=== PATIENT | female | born 1960 | race Two or more races ===

== ENCOUNTER 2017-08-20 18:00 | Emergency (ER) | payer MEDICAID, OTHER ==
[~2017-08-20] VITALS: Ht 157.5 cm; Wt 77.1 kg
[2017-08-20 18:35] VITALS: BP 156/75
== END 2017-08-20 22:14 | disposition home or self-care (01) ==
LOC: ER 18:21
DX: H11.31 Conjunctival hemorrhage, right eye (principal); R51 Headache

== ENCOUNTER 2021-04-12 11:50 | Emergency (ER) | payer MEDICAID ==
[~2021-04-12] VITALS: Ht 144.8 cm; Wt 64.9 kg
[2021-04-12 12:54] VITALS: BP 144/79
[2021-04-12] MEDS ORDERED: KETOROLAC TROMETH 60MG/2ML VIAL IM ONE (13:30)
== END 2021-04-12 13:55 | disposition home or self-care (01) ==
LOC: ER 11:50
DX: R07.81 Pleurodynia (principal); W01.0XXA Fall on same level from slipping, tripping and stumbling without subsequent striking against object, initial encounter; Y93.51 Activity, roller skating (inline) and skateboarding; Y92.89 Other specified places as the place of occurrence of the external cause; Y99.8 Other external cause status
CPT/HCPCS: 71045; 96372; 99283; J1885

== ENCOUNTER 2021-12-22 13:47 | Inpatient (IN) | payer MEDICAID ==
[~2021-12-22] VITALS: Ht 152.4 cm; Wt 78.0 kg
[2021-12-22 15:34] LABS: Eosinophils # (auto) 0 10 ^3/uL (0-0.8); Nucleated Red Blood Cells % 0.2 %; White Blood Cell 6.1 10^3/uL (4.4-10.8)
[2021-12-22 15:36] LABS: Basophils # (auto) 0.1 10 ^3/uL (0-0.2); Basophils % (auto) 1.1 % (0.0-2.0); Eosinophils % (auto) 0.5 % (0.0-7.0); Hematocrit 24.7 % (36.0-46.0); Lymphocytes # (auto) 0.8 10 ^3/uL (0.4-5.4); Mean Corpuscular Hemoglobin 23.2 pg (28.0-32.0); Mean Corpuscular Hgb Conc. 32.5 g/dL (32.0-36.0); Mean Corpuscular Volume 71.4 fL (80.0-100.0); Monocytes # (auto) 0.6 10 ^3/uL (0-1.3); Monocytes % (auto) 10.6 % (0.0-12.0); Neutrophils # (auto) 4.6 10 ^3/uL (1.6-8.6); Neutrophils % (auto) 74.8 % (37.0-80.0); Red Blood Cells 3.45 10^6/uL (4.0-5.20)
[2021-12-22 15:38] LABS: Red Cell Distribution Width 22.8 % (11.8-14.3)
[2021-12-22 15:48] LABS: Albumin 2.1 g/dL (3.4-5.0); Calcium 7.9 mg/dL (8.5-10.1); Magnesium 2.1 mg/dL (1.6-2.6); Potassium 3.2 mmol/L (3.5-5.1)
[2021-12-22 15:53] LABS: BUN/Creatinine Ratio 9.5; Bilirubin, Total 3.5 mg/dL (0.2-1.0); Total Protein 7.1 g/dL (6.4-8.2)
[2021-12-22] MEDS ORDERED: FUROSEMIDE 20 MG TAB PO ONE (19:30)
[2021-12-22] MEDS ORDERED: IOHEXOL 350 MG/ML 100ML IJ ONE (20:11)
[2021-12-22] MEDS ORDERED: POTASSIUM EFFERVESENT TAB 25 MEQ PO ONE (22:15)
[2021-12-23] MEDS ORDERED: MORPHINE SULFATE 4 MG/ML SYR/VIAL IV PRN (01:15)
[2021-12-23] MEDS ORDERED: NITROGLYCERIN 0.4 MG SL TAB SL PRN (01:15)
[2021-12-23] MEDS ORDERED: MORPHINE SULFATE INJECTION 2 MG/ML SYRG IV PRN (01:15)
[2021-12-23] MEDS ORDERED: ONDANSETRON HCL 4 MG/2 ML VIAL IV PRN (01:15)
[2021-12-23 02:04] LABS: Eosinophils # (auto) 0.1 10 ^3/uL (0-0.8); Hematocrit 24.7 % (36.0-46.0); Nucleated Red Blood Cells % 0.2 %
[2021-12-23 02:07] LABS: Basophils # (auto) 0 10 ^3/uL (0-0.2); Basophils % (auto) 0.6 % (0.0-2.0); Eosinophils % (auto) 1.1 % (0.0-7.0); Lymphocytes # (auto) 1.8 10 ^3/uL (0.4-5.4); Lymphocytes % (auto) 21.6 % (10.0-50.0); Mean Corpuscular Hemoglobin 23.2 pg (28.0-32.0); Mean Corpuscular Hgb Conc. 32.4 g/dL (32.0-36.0); Mean Corpuscular Volume 71.5 fL (80.0-100.0); Monocytes # (auto) 1.2 10 ^3/uL (0-1.3); Monocytes % (auto) 14.5 % (0.0-12.0); Neutrophils # (auto) 5.2 10 ^3/uL (1.6-8.6); Neutrophils % (auto) 62.2 % (37.0-80.0); Red Blood Cells 3.46 10^6/uL (4.0-5.20); White Blood Cell 8.4 10^3/uL (4.4-10.8)
[2021-12-23 02:09] LABS: Red Cell Distribution Width 22.7 % (11.8-14.3)
[2021-12-23 02:19] LABS: INR 1.78 (0.9-1.15)
[2021-12-23 02:33] LABS: Bilirubin, Direct 1.2 mg/dL (0-0.2)
[2021-12-23 02:34] LABS: % Iron Saturation 7.4 % (15-50); Bilirubin, Total 3.5 mg/dL (0.2-1.0)
[2021-12-23 06:07] VITALS: BP 145/68
[2021-12-23 06:22] VITALS: BP 145/68
[2021-12-23] MEDS ORDERED: PNEUMOCOCCAL VACC POLYS 25 MCG/0.5 ML VIAL IM ONE (06:45)
[2021-12-23] MEDS ORDERED: INFLUENZA QUAD 2021-2022 0.5 ML SYRG IM ONE (06:45)
[2021-12-23 09:00] VITALS: BP_SYST 136; BP_SYST 149; BP_DIAS 77; BP_DIAS 79
[2021-12-23 10:06] LABS: Basophils # (auto) 0 10 ^3/uL (0-0.2); Eosinophils # (auto) 0 10 ^3/uL (0-0.8); Mean Corpuscular Hemoglobin 22.7 pg (28.0-32.0); Mean Corpuscular Hgb Conc. 32.4 g/dL (32.0-36.0); Monocytes # (auto) 0.7 10 ^3/uL (0-1.3); Nucleated Red Blood Cells % 0.1 %
[2021-12-23 10:09] LABS: Basophils % (auto) 0.4 % (0.0-2.0); Eosinophils % (auto) 0.6 % (0.0-7.0); Hematocrit 21.3 % (36.0-46.0); Lymphocytes % (auto) 17.5 % (10.0-50.0); Mean Corpuscular Volume 70.1 fL (80.0-100.0); Monocytes % (auto) 11.1 % (0.0-12.0); Neutrophils # (auto) 4.2 10 ^3/uL (1.6-8.6); Neutrophils % (auto) 70.4 % (37.0-80.0); Red Blood Cells 3.04 10^6/uL (4.0-5.20)
[2021-12-23 10:16] LABS: Hemoglobin 6.9 g/dL (12.2-16.2); Red Cell Distribution Width 23.1 % (11.8-14.3)
[2021-12-23 10:21] LABS: Albumin 1.9 g/dL (3.4-5.0); Calcium 7.8 mg/dL (8.5-10.1); Potassium 3.4 mmol/L (3.5-5.1)
[2021-12-23 10:27] LABS: BUN/Creatinine Ratio 10.5
[2021-12-23 10:28] LABS: Bilirubin, Total 3.2 mg/dL (0.2-1.0); Total Protein 6.4 g/dL (6.4-8.2)
[2021-12-23 13:00] VITALS: BP 132/70
[2021-12-23] MEDS: FUROSEMIDE 40 MG/4 ML VIAL IV SCH (14:45)
[2021-12-23 17:00] VITALS: BP 122/59
[2021-12-23] MEDS: SPIRONOLACTONE 25 MG TAB PO SCH (17:40)
[2021-12-23 20:00] VITALS: BP 150/58
[2021-12-24] VITALS (11 sets, daily range): BP systolic 116–135; BP diastolic 53–71
[2021-12-24] MEDS: SPIRONOLACTONE 25 MG TAB PO SCH ×2 (06:27→17:50)
[2021-12-24 07:46] LABS: Basophils # (auto) 0 10 ^3/uL (0-0.2); Eosinophils # (auto) 0.1 10 ^3/uL (0-0.8); Lymphocytes # (auto) 1.4 10 ^3/uL (0.4-5.4); Monocytes # (auto) 0.7 10 ^3/uL (0-1.3)
[2021-12-24 07:52] LABS: Basophils % (auto) 0.4 % (0.0-2.0); Eosinophils % (auto) 1.9 % (0.0-7.0); Hematocrit 20.3 % (36.0-46.0); Lymphocytes % (auto) 23.6 % (10.0-50.0); Mean Corpuscular Hgb Conc. 31.4 g/dL (32.0-36.0); Neutrophils # (auto) 3.5 10 ^3/uL (1.6-8.6); Neutrophils % (auto) 61.1 % (37.0-80.0); Nucleated Red Blood Cells % 0.4 %; Red Blood Cells 2.87 10^6/uL (4.0-5.20); White Blood Cell 5.7 10^3/uL (4.4-10.8)
[2021-12-24 08:03] LABS: Potassium 3.3 mmol/L (3.5-5.1)
[2021-12-24 08:06] LABS: Mean Corpuscular Volume 70.6 fL (80.0-100.0)
[2021-12-24 08:07] LABS: Mean Corpuscular Hemoglobin 22.2 pg (28.0-32.0); Red Cell Distribution Width 23.4 % (11.8-14.3)
[2021-12-24 08:08] LABS: Hemoglobin 6.4 g/dL (12.2-16.2)
[2021-12-24 08:12] LABS: Albumin 1.6 g/dL (3.4-5.0); BUN/Creatinine Ratio 12.5; Bilirubin, Total 2.8 mg/dL (0.2-1.0); Calcium 7.5 mg/dL (8.5-10.1); Total Protein 5.7 g/dL (6.4-8.2)
[2021-12-24] MEDS ORDERED: FUROSEMIDE 40 MG/4 ML VIAL IV ONE (08:30)
[2021-12-24] MEDS: FUROSEMIDE 40 MG/4 ML VIAL IV SCH (09:21)
[2021-12-24] MEDS ORDERED: POTASSIUM CHL 20 Meq TABLET PO ONE (10:15)
[2021-12-24] MEDS: cefTRIAXone 1GM/50ML D5W 50 ML IV SCH (19:10)
[2021-12-25 05:00] VITALS: BP 113/42
[2021-12-25] MEDS: SPIRONOLACTONE 25 MG TAB PO SCH ×2 (05:45→19:12)
[2021-12-25 08:00] VITALS: BP 115/50
[2021-12-25] MEDS: cefTRIAXone 1GM/50ML D5W 50 ML IV SCH (09:16)
[2021-12-25 12:00] VITALS: BP 120/65
[2021-12-25] MEDS ORDERED: PANTOPRAZOLE 80 MG in SODIUM CHL 0.9% 100 ML IV ONE (12:00)
[2021-12-25] MEDS ORDERED: phytonadione 10 MG in SODIUM CHL 0.9% 50 ML IV ONE (12:00)
[2021-12-25 12:33] LABS: Basophils # (auto) 0 10 ^3/uL (0-0.2); Basophils % (auto) 0.2 % (0.0-2.0); Eosinophils # (auto) 0.1 10 ^3/uL (0-0.8); Eosinophils % (auto) 0.9 % (0.0-7.0); Hematocrit 23.6 % (36.0-46.0); Hemoglobin 7.8 g/dL (12.2-16.2); Lymphocytes # (auto) 1.3 10 ^3/uL (0.4-5.4); Lymphocytes % (auto) 19.3 % (10.0-50.0); Monocytes # (auto) 0.9 10 ^3/uL (0-1.3); Monocytes % (auto) 13.3 % (0.0-12.0); Neutrophils # (auto) 4.6 10 ^3/uL (1.6-8.6); Neutrophils % (auto) 66.3 % (37.0-80.0); Nucleated Red Blood Cells % 0.1 %; Red Blood Cells 3.32 10^6/uL (4.0-5.20); White Blood Cell 6.9 10^3/uL (4.4-10.8)
[2021-12-25 12:35] LABS: Mean Corpuscular Hemoglobin 23.4 pg (28.0-32.0); Mean Corpuscular Volume 71.1 fL (80.0-100.0)
[2021-12-25 12:36] LABS: Red Cell Distribution Width 24.1 % (11.8-14.3)
[2021-12-25 12:38] LABS: Calcium 7.8 mg/dL (8.5-10.1); Potassium 3.6 mmol/L (3.5-5.1)
[2021-12-25 12:41] LABS: BUN/Creatinine Ratio 16.7
[2021-12-25 12:44] LABS: INR 1.89 (0.9-1.15)
[2021-12-25] MEDS: FUROSEMIDE 40 MG/4 ML VIAL IV SCH (13:22)
[2021-12-25] MEDS: PANTOPRAZOLE 40mg/50ML NS AE 50 ML IV SCH ×2 (15:30→15:49)
[2021-12-25] MEDS: OCTREOTIDE ACETATE 500 MCG in SODIUM CHL 0.9% 99 ML IV SCH (16:21)
[2021-12-25 22:00] VITALS: BP 115/57
[2021-12-26] MEDS: PANTOPRAZOLE 40mg/50ML NS AE 50 ML IV SCH ×2 (02:10→03:23)
[2021-12-26] MEDS: OCTREOTIDE ACETATE 500 MCG in SODIUM CHL 0.9% 99 ML IV SCH ×2 (02:11→03:25)
[2021-12-26 05:00] VITALS: BP 106/50
[2021-12-26] MEDS: SPIRONOLACTONE 25 MG TAB PO SCH ×2 (07:07→10:37)
[2021-12-26] MEDS: cefTRIAXone 1GM/50ML D5W 50 ML IV SCH (10:09)
[2021-12-26] MEDS: FUROSEMIDE 20 MG TAB PO SCH (10:38)
[2021-12-26] MEDS: PANTOPRAZOLE 40 MG TAB PO SCH (10:38)
[2021-12-26 13:30] VITALS: BP 121/66
[2021-12-26 13:43] LABS: Hepatitis A Ab IgM Negative; Hepatitis B Core IgM Negative
[2021-12-26 13:44] LABS: Hepatitis C Antibody Negative (Negative)
[2021-12-26 16:30] VITALS: BP 111/76
[2021-12-27] MEDS: cefTRIAXone 1GM/50ML D5W 50 ML IV SCH (08:58)
[2021-12-27] MEDS: PANTOPRAZOLE 40 MG TAB PO SCH (08:59)
[2021-12-27] MEDS: SPIRONOLACTONE 25 MG TAB PO SCH (08:59)
[2021-12-27] MEDS: FUROSEMIDE 20 MG TAB PO SCH (08:59)
[2021-12-27 09:00] VITALS: BP 103/55
[2021-12-27] MEDS ORDERED: SPIR50TA2 PO (11:09)
[2021-12-27] MEDS ORDERED: FURO1TAB31 PO (11:09)
[2021-12-27 11:20] LABS: Basophils # (auto) 0 10 ^3/uL (0-0.2); Basophils % (auto) 0.4 % (0.0-2.0); Eosinophils # (auto) 0.1 10 ^3/uL (0-0.8); Monocytes # (auto) 0.8 10 ^3/uL (0-1.3); Monocytes % (auto) 14.3 % (0.0-12.0); Neutrophils # (auto) 3.8 10 ^3/uL (1.6-8.6); Nucleated Red Blood Cells % 0.3 %; White Blood Cell 5.8 10^3/uL (4.4-10.8)
[2021-12-27 11:22] LABS: Eosinophils % (auto) 2.1 % (0.0-7.0); Hematocrit 23.6 % (36.0-46.0); Hemoglobin 7.5 g/dL (12.2-16.2); Lymphocytes % (auto) 17.1 % (10.0-50.0); Mean Corpuscular Hemoglobin 22.9 pg (28.0-32.0); Mean Corpuscular Volume 71.5 fL (80.0-100.0); Neutrophils % (auto) 66.1 % (37.0-80.0); Red Cell Distribution Width 24.2 % (11.8-14.3)
[2021-12-27] MEDS ORDERED: FER325T PO (11:22)
[2021-12-27 11:44] LABS: BUN/Creatinine Ratio 12.5; Calcium 7.3 mg/dL (8.5-10.1)
[2021-12-27 13:00] VITALS: BP 124/61
[2021-12-27] MEDS ORDERED: POTASSIUM EFFERVESENT TAB 25 MEQ PO ONE (13:45)
[2021-12-27] MEDS ORDERED: ALBUMIN 25% 100 ML IV ONE (14:00)
[2021-12-27] MEDS ORDERED: FUROSEMIDE 40 MG/4 ML VIAL IV ONE (15:00)
[2021-12-27] MEDS: POTASSIUM CHL 10MEQ/50ML 50 ML IV SCH ×2 (15:37→15:38)
[2021-12-27 17:00] VITALS: BP 128/75
[2021-12-27 19:42] VITALS: BP 128/75
[2021-12-27 20:06] VITALS: BP 128/75
== END 2021-12-27 21:55 | disposition home or self-care (01) ==
LOC: ER 13:47 → TELE 12-23 01:02 → TELE-CENTR 12-23 05:57
PROVIDERS: ADMIT Hospitalist; ATTEND Hospitalist
PROC: 0W9G3ZZ Drainage of Peritoneal Cavity, Percutaneous Approach (ICD-10-PCS; principal; 2021-12-23)
PROC: 30233N1 Transfusion of Nonautologous Red Blood Cells into Peripheral Vein, Percutaneous Approach (ICD-10-PCS; 2021-12-24)
PROC: 0W9G3ZZ Drainage of Peritoneal Cavity, Percutaneous Approach (ICD-10-PCS; 2021-12-26)
DX: K74.60 Unspecified cirrhosis of liver (principal); R18.8 Other ascites; E88.09 Other disorders of plasma-protein metabolism, not elsewhere classified; E87.6 Hypokalemia; D50.9 Iron deficiency anemia, unspecified; M79.89 Other specified soft tissue disorders; E66.01 Morbid (severe) obesity due to excess calories; Z68.33 Body mass index [BMI] 33.0-33.9, adult; Z71.3 Dietary counseling and surveillance; Z20.822 Contact with and (suspected) exposure to COVID-19
CPT/HCPCS: 36415; 71046; 71260; 74177; 76705; 76942; 80048; 80053; 80074; 82247; 82248; 83010; 83036; 83540; 83550; 83615; 83735; 83880; 83986; 84484; 85025; 85045; 85610; 86850; 86900; 86901; 86920; 87205; 87426; 89051; 93005; C9113; G0378; J0696; J3430; P9047

== ENCOUNTER 2022-03-08 14:49 | Emergency (ER) | payer MEDICAID ==
[~2022-03-08] VITALS: Ht 134.6 cm; Wt 81.2 kg
[~2022-03-08 14:49] MED LIST: FER325T PO; FURO1TAB31 PO; SPIR50TA2 PO
[2022-03-08] MEDS ORDERED: ONDANSETRON HCL 4 MG/2 ML VIAL IV ONE (15:00)
[2022-03-08] MEDS ORDERED: LIDOCAINE 2%HCL (LOCAL ANESTH.) INJ 10ml MDV ONE (15:32)
[2022-03-08 15:57] LABS: INR 1.76 (0.9-1.15); Partial Thromboplastin Time 35.3 sec (23.6-33.0)
[2022-03-08 17:14] LABS: Albumin 1.5 g/dL (3.4-5.0); BUN/Creatinine Ratio 16.5; Calcium 8.1 mg/dL (8.5-10.1); Potassium 4.6 mmol/L (3.5-5.1)
[2022-03-08 17:16] LABS: Bilirubin, Total 5.7 mg/dL (0.2-1.0); Total Protein 7.8 g/dL (6.4-8.2)
[2022-03-08 17:36] VITALS: BP 112/55
[2022-03-08 17:52] LABS: Eosinophils # (auto) 0 10 ^3/uL (0-0.8)
[2022-03-08 17:54] LABS: Basophils # (auto) 0 10 ^3/uL (0-0.2); Basophils % (auto) 0.5 % (0.0-2.0); Eosinophils % (auto) 0.5 % (0.0-7.0); Hemoglobin 10.5 g/dL (12.2-16.2); Lymphocytes # (auto) 0.4 10 ^3/uL (0.4-5.4); Lymphocytes % (auto) 5.5 % (10.0-50.0); Mean Corpuscular Hemoglobin 26.6 pg (28.0-32.0); Mean Corpuscular Hgb Conc. 33.8 g/dL (32.0-36.0); Mean Corpuscular Volume 78.9 fL (80.0-100.0); Monocytes # (auto) 0.9 10 ^3/uL (0-1.3); Monocytes % (auto) 12.7 % (0.0-12.0); Neutrophils # (auto) 5.7 10 ^3/uL (1.6-8.6); Neutrophils % (auto) 80.8 % (37.0-80.0); Nucleated Red Blood Cells % 0.3 %; Red Blood Cells 3.94 10^6/uL (4.0-5.20); White Blood Cell 7.1 10^3/uL (4.4-10.8)
[2022-03-08] MEDS ORDERED: HYDROmorphone HCL 2 MG/ML VL IV ONE (18:15)
== END 2022-03-08 22:06 | disposition home or self-care (01) ==
LOC: ER 14:49
DX: R18.8 Other ascites (principal); M79.89 Other specified soft tissue disorders; E78.5 Hyperlipidemia, unspecified; I10 Essential (primary) hypertension; Z20.822 Contact with and (suspected) exposure to COVID-19
CPT/HCPCS: 36415; 76700; 76942; 80053; 82150; 83690; 85025; 85610; 85730; 87426; 99284; C1729; J2001